=== PATIENT | male | born 1940 | race Asian ===

== ENCOUNTER 2018-12-21 18:52 | Inpatient (IN) | payer MEDICARE, OTHER ==
[2018-12-21 19:04] LABS: ADD MAN DIFF? NO
[2018-12-21] MEDS: SOD CHLORIDE 0.9% 1,000 ML IV (19:04)
[2018-12-21] MEDS: DIPHTH/TET/ACEL PERTUSS (ADULT) 0.5 ML VIAL IM* (19:05)
[2018-12-21 19:08] LABS: WHITE BLOOD COUNT 10.9 10^3/ul (4.8-10.8)
[2018-12-21 19:08] LABS: BASOPHILS % 0.4 % (0.0-2.0); EOSINOPHILS # 0.1 10^3/ul (0.0-0.5); HEMATOCRIT 42.6 % (42.0-52.0); HEMOGLOBIN 14.2 g/dl (14.0-18.0); LYMPHOCYTES # 1.9 10^3/ul (0.8-2.9); LYMPHOCYTES % 17.2 % (15.0-51.0); MEAN CORPUSCULAR HEMOGLOBIN 29.1 pg (29.0-33.0); MEAN CORPUSCULAR HGB CONC 33.3 g/dl (32.0-37.0); MEAN CORPUSCULAR VOLUME 87.3 fl (82.0-101.0); MEAN PLATELET VOLUME 10.1 fl (7.4-10.4); MONOCYTE # 0.9 10^3/ul (0.3-0.9); MONOCYTES % 8.6 % (0.0-11.0); NEUTROPHIL # 7.9 10^3/ul (1.6-7.5); NEUTROPHILS % 72.5 % (39.0-77.0); PLATELET COUNT 212 10^3/UL (140-415); RED BLOOD COUNT 4.88 10^6/ul (4.70-6.10)
[2018-12-21 19:32] LABS: ALANINE AMINOTRANSFERASE 17 IU/L (13-69); ALBUMIN 4.4 g/dl (3.3-4.9); ALBUMIN/GLOBULIN RATIO 1.15; ALKALINE PHOSPHATASE 89 IU/L (42-121); ANION GAP 13 (5-13); ASPARTATE AMINO TRANSFERASE 40 IU/L (15-46); BILIRUBIN,INDIRECT 1.3 mg/dl (0-1.1); BILIRUBIN,TOTAL 1.3 mg/dl (0.2-1.3); BLOOD UREA NITROGEN 39 mg/dl (7-20); CALCIUM 9.5 mg/dl (8.4-10.2); CARBON DIOXIDE 21 mmol/L (21-31); CHLORIDE 108 mmol/L (97-110); CREATININE 1.03 mg/dl (0.61-1.24); GLUCOSE 202 mg/dl (70-220); LIPASE 63 U/L (23-300); POTASSIUM 3.9 mmol/L (3.5-5.1); SODIUM 142 mmol/L (135-144); TOTAL PROTEIN 8.2 g/dl (6.1-8.1)
[2018-12-21 19:43] LABS: TROPONIN-I < 0.012 ng/ml (0.000-0.120)
[2018-12-22] MEDS ORDERED: ONDANSETRON 4 MG INJ IV
[2018-12-22] MEDS ORDERED: NACL 0.9% 3 ML SYG IV
[2018-12-22] MEDS ORDERED: ALBUTEROL/IPRATROPIUM (NEB) 3 ML AMP HHN
[2018-12-22] MEDS ORDERED: ACETAMINOPHEN 325 MG TAB PO
[2018-12-22] MEDS ORDERED: PENDING SANTYL ORDER FOR WOUND CARE XX (01:00)
[2018-12-22 05:54] LABS: ADD MAN DIFF? NO
[2018-12-22 06:04] LABS: WHITE BLOOD COUNT 10.2 10^3/ul (4.8-10.8)
[2018-12-22 06:04] LABS: BASOPHIL # 0.1 10^3/ul (0.0-0.1); BASOPHILS % 0.7 % (0.0-2.0); EOSINOPHILS # 0.2 10^3/ul (0.0-0.5); EOSINOPHILS % 1.6 % (0.0-7.0); HEMATOCRIT 39.3 % (42.0-52.0); HEMOGLOBIN 13.2 g/dl (14.0-18.0); LYMPHOCYTES # 1.8 10^3/ul (0.8-2.9); LYMPHOCYTES % 17.9 % (15.0-51.0); MEAN CORPUSCULAR HEMOGLOBIN 29.4 pg (29.0-33.0); MEAN CORPUSCULAR HGB CONC 33.6 g/dl (32.0-37.0); MEAN CORPUSCULAR VOLUME 87.5 fl (82.0-101.0); MEAN PLATELET VOLUME 10.6 fl (7.4-10.4); MONOCYTES % 9.7 % (0.0-11.0); NEUTROPHIL # 7.1 10^3/ul (1.6-7.5); NEUTROPHILS % 69.8 % (39.0-77.0); PLATELET COUNT 207 10^3/UL (140-415); RED BLOOD COUNT 4.49 10^6/ul (4.70-6.10); RED CELL DISTRIBUTION WIDTH 13.2 % (11.5-14.5)
[2018-12-22 06:25] LABS: ALANINE AMINOTRANSFERASE 25 IU/L (13-69); ALBUMIN 3.7 g/dl (3.3-4.9); ALBUMIN/GLOBULIN RATIO 1.05; ALKALINE PHOSPHATASE 75 IU/L (42-121); ANION GAP 11 (5-13); ASPARTATE AMINO TRANSFERASE 33 IU/L (15-46); BILIRUBIN,INDIRECT 1.3 mg/dl (0-1.1); BILIRUBIN,TOTAL 1.3 mg/dl (0.2-1.3); BLOOD UREA NITROGEN 31 mg/dl (7-20); CALCIUM 8.6 mg/dl (8.4-10.2); CARBON DIOXIDE 20 mmol/L (21-31); CHLORIDE 113 mmol/L (97-110); CHOL/HDL RATIO 6.1 RATIO; CHOLESTEROL 238 mg/dl (100-200); CREATININE 0.83 mg/dl (0.61-1.24); GLUCOSE 165 mg/dl (70-220); HDL CHOLESTEROL 39 mg/dl (31-75); LDL CHOLESTEROL,CALCULATED 170 mg/dl; POTASSIUM 3.5 mmol/L (3.5-5.1); SODIUM 144 mmol/L (135-144); TOTAL PROTEIN 7.2 g/dl (6.1-8.1); TRIGLYCERIDES 144 mg/dl (0-149)
[2018-12-22 06:48] LABS: THYROID STIMULATING HORMONE 0.377 MIU/L (0.465-4.680)
[2018-12-22] MEDS: ASPIRIN (EC) 81 MG TAB PO (12:51)
[2018-12-22] MEDS: HEPARIN 5,000 UNIT/1 ML VIAL SC ×2 (12:59→20:56)
[2018-12-22] MEDS: ATORVASTATIN 10 MG TAB PO (20:54)
[2018-12-23 05:46] LABS: ADD MAN DIFF? NO
[2018-12-23 05:53] LABS: BASOPHIL # 0.1 10^3/ul (0.0-0.1); BASOPHILS % 0.7 % (0.0-2.0); EOSINOPHILS # 0.1 10^3/ul (0.0-0.5); EOSINOPHILS % 1.2 % (0.0-7.0); HEMATOCRIT 40.4 % (42.0-52.0); HEMOGLOBIN 13.4 g/dl (14.0-18.0); LYMPHOCYTES # 1.6 10^3/ul (0.8-2.9); LYMPHOCYTES % 19.1 % (15.0-51.0); MEAN CORPUSCULAR HEMOGLOBIN 29.1 pg (29.0-33.0); MEAN CORPUSCULAR HGB CONC 33.2 g/dl (32.0-37.0); MEAN CORPUSCULAR VOLUME 87.8 fl (82.0-101.0); MEAN PLATELET VOLUME 10.4 fl (7.4-10.4); MONOCYTE # 0.7 10^3/ul (0.3-0.9); MONOCYTES % 8.8 % (0.0-11.0); NEUTROPHIL # 5.9 10^3/ul (1.6-7.5); NEUTROPHILS % 69.8 % (39.0-77.0); PLATELET COUNT 211 10^3/UL (140-415); RED CELL DISTRIBUTION WIDTH 12.9 % (11.5-14.5)
[2018-12-23 05:53] LABS: WHITE BLOOD COUNT 8.4 10^3/ul (4.8-10.8)
[2018-12-23 06:08] LABS: INR 0.98; PROTIME 13.1 Sec (11.9-14.9)
[2018-12-23 06:29] LABS: ANION GAP 7 (5-13); BLOOD UREA NITROGEN 26 mg/dl (7-20); CALCIUM 8.8 mg/dl (8.4-10.2); CARBON DIOXIDE 24 mmol/L (21-31); CHLORIDE 113 mmol/L (97-110); CREATININE 0.79 mg/dl (0.61-1.24); GLUCOSE 245 mg/dl (70-220); POTASSIUM 3.8 mmol/L (3.5-5.1); SODIUM 144 mmol/L (135-144)
[2018-12-23 06:35] LABS: MAGNESIUM 2.1 mg/dl (1.7-2.5)
[2018-12-23 06:35] LABS: PHOSPHORUS 2.6 mg/dl (2.5-4.9)
[2018-12-23 06:41] LABS: FREE T4 (FREE THYROXINE) 1.45 ng/dl (0.85-1.93)
[2018-12-23] MEDS: ASPIRIN (EC) 81 MG TAB PO (10:24)
[2018-12-23] MEDS: HEPARIN 5,000 UNIT/1 ML VIAL SC (10:27)
[2018-12-23] MEDS: SOD CHLORIDE 0.9% 100 ML (11:00)
[2018-12-23] MEDS: IOHEXOL 100 ML (11:00)
[2018-12-23 20:13] LABS: RAPID PLASMA REAGIN NONREACTIVE (NR)
[2018-12-23] MEDS: ATORVASTATIN 80 MG TAB PO (21:01)
[2018-12-23] MEDS: FAMOTIDINE 20 MG TAB PO (21:01)
[2018-12-24] MEDS ORDERED: LISINOPRIL 5 MG TAB PO (09:00)
[2018-12-24] MEDS: ASPIRIN (EC) 81 MG TAB PO (10:07)
[2018-12-24] MEDS: ENOXAPARIN 40 MG/0.4 ML SYG SC (10:12)
[2018-12-24 10:53] LABS: AMPHETAMINE/METHAMPHETAMINE Negative (NEGATIVE); BARBITURATES Negative (NEGATIVE); BENZODIAZEPINES Negative (NEGATIVE); CANNABINOIDS Negative (NEGATIVE); COCAINE Negative (NEGATIVE); OPIATES Negative (NEGATIVE)
[2018-12-24] MEDS: FAMOTIDINE 20 MG TAB PO (22:13)
[2018-12-24] MEDS: ATORVASTATIN 80 MG TAB PO (22:13)
[2018-12-25] MEDS ORDERED: HALOPERIDOL 5 MG INJ IM (02:30)
[2018-12-25] MEDS: LORAZEPAM 2 MG INJ IV (02:53)
[2018-12-25] MEDS: ASPIRIN (EC) 81 MG TAB PO (08:44)
[2018-12-25] MEDS: ENOXAPARIN 40 MG/0.4 ML SYG SC (08:48)
[2018-12-25] MEDS: NEOMYC/POLYMYX/BACIT 30 GM OINT TOP (14:24)
[2018-12-25] MEDS: FAMOTIDINE 20 MG TAB PO (20:17)
[2018-12-25] MEDS: ATORVASTATIN 80 MG TAB PO (20:17)
[2018-12-25] MEDS ORDERED: DOCUSATE SODIUM 100 MG CAP PO (21:00)
[2018-12-26] MEDS: NEOMYC/POLYMYX/BACIT 30 GM OINT TOP (09:22)
[2018-12-26] MEDS: ASPIRIN (EC) 81 MG TAB PO (09:22)
[2018-12-26] MEDS: ENOXAPARIN 40 MG/0.4 ML SYG SC (09:24)
[2018-12-26] MEDS: FAMOTIDINE 20 MG TAB PO (21:36)
[2018-12-26] MEDS: ATORVASTATIN 80 MG TAB PO (21:36)
[2018-12-27] MEDS: ENOXAPARIN 40 MG/0.4 ML SYG SC (08:31)
[2018-12-27] MEDS: NEOMYC/POLYMYX/BACIT 30 GM OINT TOP (08:31)
[2018-12-27] MEDS: LISINOPRIL 5 MG TAB PO (08:46)
[2018-12-27] MEDS: ASPIRIN (EC) 81 MG TAB PO (08:46)
[2018-12-27] MEDS ORDERED: GLUCAGON 1 MG INJ IM (17:30)
[2018-12-27] MEDS: PRENATAL VITAMIN PO (17:30)
[2018-12-27] MEDS ORDERED: GLUCOSE GEL 15 GRAM TUBE BUCCAL (17:30)
[2018-12-27] MEDS ORDERED: DEXTROSE 50% 50 ML SYRINGE IV ×2 (17:30)
[2018-12-27] MEDS ORDERED: GLUCOSE GEL 15 GRAM TUBE PO ×2 (17:30)
[2018-12-27] MEDS: metFORMIN 500 MG TAB PO (17:46)
[2018-12-27] MEDS: INSULIN ASPART [NOVOLOG] 3 ML PEN SC ×2 (17:50→20:34)
[2018-12-27] MEDS: ATORVASTATIN 80 MG TAB PO (20:31)
[2018-12-27] MEDS: FAMOTIDINE 20 MG TAB PO (20:31)
[2018-12-28] MEDS: INSULIN ASPART [NOVOLOG] 3 ML PEN SC ×3 (08:47→17:29)
[2018-12-28] MEDS: ASPIRIN (EC) 81 MG TAB PO (08:48)
[2018-12-28] MEDS: metFORMIN 500 MG TAB PO ×2 (08:48→17:30)
[2018-12-28] MEDS: PRENATAL VITAMIN PO (08:48)
[2018-12-28] MEDS: LISINOPRIL 5 MG TAB PO (08:49)
[2018-12-28] MEDS: ENOXAPARIN 40 MG/0.4 ML SYG SC (08:50)
[2018-12-28] MEDS: NEOMYC/POLYMYX/BACIT 30 GM OINT TOP (09:00)
== END 2018-12-28 19:30 | DRG 65 ==
LOC: PP2 12-26 01:01 → E/R 18:52 → 6WM 19:56
DX: I63.233 Cerebral infarction due to unspecified occlusion or stenosis of bilateral carotid arteries (principal); G93.40 Encephalopathy, unspecified; E88.81 Metabolic syndrome and other insulin resistance; R13.10 Dysphagia, unspecified; E11.9 Type 2 diabetes mellitus without complications; E78.5 Hyperlipidemia, unspecified; I10 Essential (primary) hypertension; E03.9 Hypothyroidism, unspecified; R62.7 Adult failure to thrive; Z68.26 Body mass index [BMI] 26.0-26.9, adult; S50.311A Abrasion of right elbow, initial encounter; S53.401A Unspecified sprain of right elbow, initial encounter; W19.XXXA Unspecified fall, initial encounter; Y93.89 Activity, other specified; Y92.511 Restaurant or cafe as the place of occurrence of the external cause; Y99.8 Other external cause status; Z79.4 Long term (current) use of insulin; Z79.82 Long term (current) use of aspirin
CPT/HCPCS: 36415; 70450; 70498; 70551; 71045; 73080-RT; 76536; 80048; 80053; 80061; 80307; 82962; 83036; 83690; 83735; 84100; 84439; 84443; 84480; 84484; 85025; 85610; 85651; 86592; 90471; 90715; 92610; 93005; 93306; 93880; 97110; 97162; 97167; 97530; 99285-25